=== PATIENT | female | born 1995 | race Caucasian/White ===

== ENCOUNTER 2018-10-12 17:09 | Emergency (ER) | payer OTHER ==
[2018-10-12 19:37] VITALS: BP 110/77
[2018-10-12] MEDS ORDERED: BACITRACIN OINT TOP STA (20:03)
[2018-10-12] MEDS ORDERED: BACITRACIN OINT TOP ONE (20:04)
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
== END 2018-10-12 20:23 | disposition home or self-care (01) ==
LOC: ED 17:09
DX: T22.212A Burn of second degree of left forearm, initial encounter (principal); T31.0 Burns involving less than 10% of body surface; X12.XXXA Contact with other hot fluids, initial encounter; Y99.0 Civilian activity done for income or pay; F17.200 Nicotine dependence, unspecified, uncomplicated
CPT/HCPCS: 1040M; 99282; 99283; A9270

== ENCOUNTER 2020-05-20 08:38 | Day surgery (SDC) | payer OTHER ==
[~2020-05-20 08:38] MED LIST: BUPIVACAINE 0.25% PF 30 ML VIAL ONE
[2020-05-20] MEDS ORDERED: LACTATED RINGERS 1,000 ML IV ONE ×2 (08:45→10:37)
[2020-05-20 09:08] LABS: HCG UR QUAL NEGATIVE
[2020-05-20] MEDS ORDERED: CEFAZOLIN SODIUM IN 0.9 % NACL 2 GM/100 ML BAG IV ONE (09:19)
[2020-05-20] MEDS ORDERED: LIDOCAINE-MPF 2% 5 ML VIAL IM ONE (09:30)
[2020-05-20] MEDS ORDERED: fentaNYL 100 MCG/2 ML VIAL IVP ONE (09:30)
[2020-05-20] MEDS ORDERED: PROPOFOL 200 MG/20 ML VIAL IVP ONE (09:30)
[2020-05-20] MEDS ORDERED: ONDANSETRON 4 MG/2 ML VIAL IVP ONE (09:30)
[2020-05-20] MEDS ORDERED: DEXAMETHASONE 4 MG/ML VIAL IVP ONE (09:30)
--- NOTE | 2020-05-20 09:36 | ANESTHESIA ---
Pre-Anesthesia VS, & Labs - Diagnosis symptomatic hardware - Procedure tibial hardware removal Vital Signs: Temp Pulse Resp BP Pulse Ox 36.3 C L 88 16 117/77 97 05/20/20 08:45 05/20/20 08:45 05/20/20 08:45 05/20/20 08:45 05/20/20 08:45 Height 5 ft 2 in Weight (kg) 59.2 kg Body Mass Index 20.1 - Is Patient ?: No - Lab Results Lab results reviewed: Yes Home Medications and Allergies Ibuprofen [Motrin] 600 mg PO Q6H PRN 10/10/19 Etonogestrel [Nexplanon] 68 mg SQ 10/11/19 Allergies/Adverse Reactions: Allergies Allergy/AdvReac Type Severity Reaction Status Date / Time No Known Drug Allergies Allergy Verified 05/16/20 11:28 Anes History & Medical History - Anesthetic History Anesthesia Complications: reports: No previous complications Family history of Anesthesia Complications: Denies Family history of Malignant Hyperthermia: Denies - Medical History Pulmonary: reports: None Gastrointestinal: reports: None Urinary: reports: None Neuro: reports: None Musculoskeletal: reports: None, Other Endocrine/Autoimmune: reports: None Blood Disorders: reports: None Skin: reports: None Smoking Status: Former smoker Exam General: Alert, Oriented x3, Cooperative, No acute distress Dental: WNL Mouth Openin Fingerbreadth Neck Mobility: Normal Mallampati classification: II Thyromental Distance: 4-6 cm Cardiovascular: Regular rate, Normal S1, Normal S2, No murmurs Mental/Cognitive Status: Alert/Oriented X3, Normal for patient Plan Anesthesia Type: General Consent for Procedure(s) Verified and Reviewed: Yes Code Status: Attempt Resuscitation ASA classification: 2-Mild systemic disease Is this case an emergency?: No
[2020-05-20] MEDS ORDERED: ATROPINE ABBOJECT 1 MG/10 ML SYRINGE IVP PRN (09:39)
[2020-05-20] MEDS ORDERED: HYDROmorphone 0.5 MG/0.5 ML SYRINGE IVP PRN (09:39)
[2020-05-20] MEDS ORDERED: ONDANSETRON 4 MG/2 ML VIAL IVP PRN ×2 (09:39→10:38)
[2020-05-20] MEDS ORDERED: fentaNYL 100 MCG/2 ML VIAL IVP PRN (09:39)
[2020-05-20] MEDS ORDERED: NALOXONE 0.4 MG/ML VIAL IVP PRN (09:39)
[2020-05-20] MEDS ORDERED: ePHEDrine 50 MG/ML VIAL IVP PRN (09:39)
[2020-05-20] MEDS ORDERED: METOCLOPRAMIDE 10 MG/2 ML VIAL IVP PRN (09:39)
[2020-05-20] MEDS ORDERED: LACTATED RINGERS 1,000 ML IV SCH (10:00)
[2020-05-20] MEDS ORDERED: BUPIVACAINE 0.25%-EPI 1:200000 PF 30 ML VIAL SUBQ ONE ×2 (10:24)
[2020-05-20] MEDS ORDERED: oxyCODONE 5 MG TABLET PO PRN (10:38)
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
[2020-05-20 11:13] VITALS: BP 125/86
--- NOTE | 2020-05-20 12:47 | ANESTHESIA POST OP EVALUATION ---
Anesthesia Post Eval - Post Anesthesia Eval Vitals: Last Vital Signs Temp 36.0 C L 05/20/20 11:12 Pulse 62 05/20/20 11:12 Resp 15 05/20/20 11:12 BP 125/86 H 05/20/20 11:12 Pulse Ox 100 05/20/20 11:12 CV Function Including HR & BP: positive: Stable Pain Control: positive: Satisfactory Nausea & Vomiting: positive: Negative Mental Status: positive: Baseline Respiratory Status: Airway Patent Hydration Status: Satisfactory Anesthesia Complications: positive: None
== END 2020-05-20 08:39 | disposition home or self-care (01) ==
LOC: SDS 08:38
PROVIDERS: ATTEND Orthopaedic Surgery
DX: T84.84XA Pain due to internal orthopedic prosthetic devices, implants and grafts, initial encounter (principal); Z87.891 Personal history of nicotine dependence
CPT/HCPCS: 81025